=== PATIENT | female | born 1995 | race Caucasian/White ===

== ENCOUNTER 2017-02-14 19:40 | Emergency (ER) | payer OTHER ==
[~2017-02-14] VITALS: Ht 162.6 cm; Wt 102.0 kg
[~2017-02-14 19:40] MED LIST: AUGM875T PO
[2017-02-14 19:42] VITALS: BP 144/89; PULSE 90; RESP 15; TEMP 98.9; O2SAT 97
--- NOTE | 2017-02-14 21:27 | PD ---
HPI Chief Complaint: Flank/Kidney Pain Time Seen by Provider: 21:18 Travel History International Travel<30 days: No Contact w/Intl Traveler<30days: No Traveled to known affect area: No History of Present Illness HPI 21-year-old white female presents to emergency Department with complaints of left upper abdominal and left lateral abdominal wall pain. She states that this is been present now for the past month. She actually saw her doctor approximately 2 weeks ago. At that time she also is complaining of sore throat was given amoxicillin. She was told to take Tylenol for her pain. She states the pain has been intermittent. Worse when she stands at work or rotates. She has had no associated fever chills. No nausea vomiting. It is unaffected by her appetite. She's been eating and drinking normally. She is been urinating and stooling normally. She denies any vaginal complaints. Patient reports the pain is [id number] in intensity. Cramping in quality. PFSH Past Medical History Narrative Medical Gallstones Diminished Hearing: No Gastrointestinal Disorders: Yes (gallstones) Immunizations Current: Yes Tetanus Vaccination: < 5 Years ?: Not LMP: CURRENT Tubal Ligation: Yes Past Surgical History Narrative Surgical Cholecystectomy Abdominal Surgery: Yes (gall bladder) Section: Yes (x2) Cholecystectomy: Yes Other Surgery: Yes (cyst removed from neck) Social History Alcohol Use: Yes (occ) Tobacco Use: Yes (1/2 ppd) Substance Use: No Allergies-Medications (Allergen,Severity, Reaction): Coded Allergies: No Known Allergies (Unverified , 02/14/17) Reported Meds & Prescriptions Reported Meds & Active Scripts Active Diclofenac Sodium DR (Diclofenac Sodium) 75 Mg Tabdr 75 Mg PO BID Review of Systems Except as stated in HPI: all other systems reviewed are Neg Physical Exam Narrative GENERAL: Well-developed, well-nourished in no acute distress. Nontoxic appearing. HEAD: Normocephalic, atraumatic. EYES: Pupils equal round and reactive. Extraocular motions intact. No scleral icterus. No injection or drainage. ENT: TMs clear without erythema. The external auditory canals clear. Nose: clear . Posterior pharynx is pink and moist. No tonsillar edema or exudate. Uvula midline. Airway patent. NECK: Trachea midline.Supple, nontender, moves head freely. No central bony tenderness or spasm. CARDIOVASCULAR: Regular rate and rhythm without murmurs, gallops, or rubs. RESPIRATORY: Clear to auscultation. Breath sounds equal bilaterally. No wheezes , rales, or rhonchi. GASTROINTESTINAL: Abdomen soft, patient has mild tenderness on the left costal margin. There is no deep abdominal tenderness., nondistended. No hepato- splenomegaly, or palpable masses. No guarding. EXTREMITIES: No clubbing, cyanosis, or edema. No joint tenderness, effusion, or edema noted. BACK: Nontender without deformity or crepitance. No flank tenderness. Data Data Last Documented VS Vital Signs Date Time Temp Pulse Resp B/P (MAP) Pulse Ox O2 Delivery O2 Flow Rate FiO2 02/14/17 19:42 98.9 90 15 144/89 (107) 97 Room Air Orders Orders Complete Blood Count With Diff (02/14/17 21:23) Comprehensive Metabolic Panel (02/14/17 21:23) Urinalysis - C+S If Indicated (02/14/17 21:23) Naproxen (Naprosyn) (02/14/17 22:30) Labs Laboratory Tests Test 02/14/17 21:26 White Blood Count 11.9 TH/MM3 Red Blood Count 5.26 MIL/MM3 Hemoglobin 12.0 GM/DL Hematocrit 38.0 % Mean Corpuscular Volume 72.3 FL Mean Corpuscular Hemoglobin 22.9 PG Mean Corpuscular Hemoglobin Concent 31.6 % Red Cell Distribution Width 16.4 % Platelet Count 272 TH/MM3 Mean Platelet Volume 8.6 FL Neutrophils (%) (Auto) 57.1 % Lymphocytes (%) (Auto) 33.3 % Monocytes (%) (Auto) 5.0 % Eosinophils (%) (Auto) 4.3 % Basophils (%) (Auto) 0.3 % Neutrophils # (Auto) 6.8 TH/MM3 Lymphocytes # (Auto) 4.0 TH/MM3 Monocytes # (Auto) 0.6 TH/MM3 Eosinophils # (Auto) 0.5 TH/MM3 Basophils # (Auto) 0.0 TH/MM3 CBC Comment DIFF FINAL Differential Comment Urine Color YELLOW Urine Turbidity HAZY Urine pH 6.5 Urine Specific [place] 1.022 Urine Protein TRACE mg/dL Urine Glucose (UA) NEG mg/dL Urine Ketones NEG mg/dL Urine Occult Blood MOD Urine Nitrite NEG Urine Bilirubin NEG Urine Urobilinogen LESS THAN 2.0 MG/DL Urine Leukocyte Esterase NEG Urine RBC 2 /hpf Urine WBC 4 /hpf Urine Squamous Epithelial Cells 2 /hpf Urine Amorphous Sediment RARE Urine Mucus FEW /lpf Microscopic Urinalysis Comment CULT NOT INDICATED Blood Urea Nitrogen 16 MG/DL Creatinine 0.92 MG/DL Random Glucose 91 MG/DL Total Protein 7.4 GM/DL Albumin 4.0 GM/DL Calcium Level 8.8 MG/DL Alkaline Phosphatase 79 U/L Aspartate Amino Transf (AST/SGOT) 11 U/L Alanine Aminotransferase (ALT/SGPT) 21 U/L Total Bilirubin 0.2 MG/DL Sodium Level 140 MEQ/L Potassium Level 3.9 MEQ/L Chloride Level 108 MEQ/L Carbon Dioxide Level 27.1 MEQ/L Anion Gap 5 MEQ/L Estimat Glomerular Filtration Rate 76 ML/MIN MDM Medical Decision Making Medical Screen Exam Complete: Yes Emergency Medical Condition: Yes Medical Record Reviewed: Yes Interpretation(s) CBC & BMP Diagram 02/14/17 21:26 Total Protein 7.4, Albumin 4.0, Calcium Level 8.8, Alkaline Phosphatase 79, Aspartate Amino Transf (AST/SGOT) 11 L, Alanine Aminotransferase (ALT/SGPT) 21, Total Bilirubin 0.2 Differential Diagnosis MDM: Moderate Differential diagnoses: Gastritis, reflux, abdominal wall strain, intra- abdominal process, UTI, pyelonephritis Narrative Course Urine is negative. Patient's CBC has a mildly elevated white count 11,000 but no shift. Lites lites are normal. Patient's exam is consistent with myofascial tenderness to the left costal margin. Her abdomen is soft and nontender. She's been eating and drinking normally. She stooling and urinating normally. I see no emergent process. Patient was given Naprosyn 500 mg EOMI advised to follow-up with her doctor the next 1-2 days for recheck. This is left upper abdominal wall pain Diagnosis Primary Impression: Abdominal wall pain in left upper quadrant Patient Instructions: General Instructions Additional Instructions: Rest. Increase fluids. Diclofenac for pain. Follow-up with your doctor in the next 1-2 days. Return to the ER for any emergencies. Med/Other Pt SpecificInfo: Prescription(s) given Scripts Diclofenac Sodium DR (Diclofenac Sodium DR) 75 Mg Tabdr 75 MG PO BID, #20 TAB 0 Refills Prov: Lightburn,David Venancio MD 02/14/17 Disposition: 01 DISCHARGE HOME Condition: Stable Sanchez Pitts Feb 14, 2017 21:27
[2017-02-14 21:54] LABS: BLOOD, URINE MOD (NEG); COMMENT (UR) CULT NOT INDICATED; CULTURE IF INDICATED CULT NOT INDICATED; GLUCOSE,URINE NEG (NEG); KETONE, URINE NEG (NEG); MUCUS URINE FEW /lpf (OCC); NITRITE,URINE NEG (NEG); PH, URINE 6.5 (5.0-8.5); SQUAMOUS EPITHELIAL CELL URINE 2 /hpf (0-5); URINE COLOR YELLOW (YELLW/STRAW)
[2017-02-14 21:56] LABS: AUTOMATED NEUTROPHIL # 6.8 TH/MM3 (1.8-7.7); BASOPHIL % 0.3 % (0.0-2.0); EOSINOPHIL # 0.5 TH/MM3 (0-0.4); EOSINOPHIL % 4.3 % (0.0-4.0); HEMO FLAGS DIFF FINAL; LYMPH % 33.3 % (9.0-44.0); MEAN CELL VOLUME 72.3 FL (80.0-100.0); MEAN CORPUSCULAR HEMOGLOBIN 22.9 PG (27.0-34.0); MEAN CORPUSCULAR HGB CONC 31.6 % (32.0-36.0); NEUT % 57.1 % (16.0-70.0); PLATELET COUNT 272 TH/MM3 (150-450); RED BLOOD COUNT 5.26 MIL/MM3 (4.00-5.30); RED CELL DISTRIBUTION WIDTH 16.4 % (11.6-17.2); WHITE BLOOD COUNT 11.9 TH/MM3 (4.0-11.0)
[2017-02-14 22:11] LABS: ALT (GPT) 21 U/L (10-53); ANION GAP 5 MEQ/L (5-15); AST (GOT) 11 U/L (15-37); BICARBONATE 27.1 MEQ/L (21.0-32.0); BLOOD UREA NITROGEN 16 MG/DL (7-18); CHLORIDE 108 MEQ/L (98-107); GLOMERULAR FILTRATION RATE 76 ML/MIN (>89); POTASSIUM 3.9 MEQ/L (3.5-5.1); SODIUM (NA) 140 MEQ/L (136-145)
[2017-02-14 22:14] LABS: ALKALINE PHOSPHATASE 79 U/L (45-117); TOTAL BILIRUBIN ADULT 0.2 MG/DL (0.2-1.0)
[2017-02-14] MEDS ORDERED: NAPROXEN 500 MG TAB PO ONE (22:30)
[2017-02-14] MEDS ORDERED: DICL75TA PO (22:31)
== END 2017-02-14 23:04 | disposition home or self-care (01) ==
LOC: NEPD 19:40
DX: R10.12 Left upper quadrant pain (principal); F17.200 Nicotine dependence, unspecified, uncomplicated
CPT/HCPCS: 80053; 81001; 85025; 99283

== ENCOUNTER 2017-04-20 19:00 | Emergency (ER) | payer OTHER ==
[~2017-04-20] VITALS: Ht 162.6 cm; Wt 104.5 kg
[~2017-04-20 19:00] MED LIST changes: -AUGM875T PO; +DICL75TA PO
[2017-04-20 19:01] VITALS: BP 181/84; PULSE 80; RESP 16; TEMP 98.7; O2SAT 98
--- NOTE | 2017-04-20 19:55 | PD ---
HPI Chief Complaint: Skin Problem Time Seen by Provider: 19:55 Travel History International Travel<30 days: No Contact w/Intl Traveler<30days: No Traveled to known affect area: No History of Present Illness HPI Examined in the presence of a female nurse. 21-year-old female presents for evaluation of rash. She reports that initially she developed a rash on her arms and legs in January after she went very picking. She thought that it may have been chiggers and so she put nail syriac on the skin lesions and it resolved. She began developing similar rash in late March and this is what prompted evaluation. She reports that the rash is very pruritic. She denies any new medications, creams, lotions, detergents, recent travel, fevers or chills, sore throat, abdominal pain. No sick contacts. She does note that she moved into a new apartment in January and her symptoms seem to started shortly after that. She has no other complaints at this time. [facility] Past Medical History Medical History: Denies Significant Hx Diminished Hearing: No Gastrointestinal Disorders: Yes (gallstones) Immunizations Current: Yes Tetanus Vaccination: Unknown Influenza Vaccination: No ?: Not LMP: 04/05/2017 : 3 Para: 3 Tubal Ligation: Yes Past Surgical History Abdominal Surgery: Yes (gall bladder) Section: Yes (x2) Cholecystectomy: Yes Other Surgery: Yes (cyst removed from neck) Social History Alcohol Use: Yes (occ) Tobacco Use: Yes (1/2 ppd) Substance Use: No Allergies-Medications (Allergen,Severity, Reaction): Coded Allergies: latex (Verified Allergy, Severe, 04/20/17) RASH No Known Allergies (Unverified Allergy, Unknown, 04/20/17) Reported Meds & Prescriptions Reported Meds & Active Scripts Active Elimite Topical (Permethrin) 5% Cream 1 Applic TOPICAL ONCE Review of Systems Except as stated in HPI: all other systems reviewed are Neg Physical Exam Narrative GENERAL: Well-developed well-nourished female in no acute distress SKIN: Warm and dry. Nonspecific excoriated papular lesions primarily in the arms and legs. Seems to spare the torso. No vesicles, no pustules, no petechiae, no purpura, no annular lesions, no erythema. HEAD: Atraumatic. Normocephalic. EYES: Pupils equal and round. No scleral icterus. No injection or drainage. ENT: No nasal bleeding or discharge. Mucous membranes pink and moist. NECK: Trachea midline. No JVD. CARDIOVASCULAR: Regular rate and rhythm. No murmur appreciated. RESPIRATORY: No accessory muscle use. Clear to auscultation. Breath sounds equal bilaterally. GASTROINTESTINAL: Abdomen soft, non-tender, nondistended. Hepatic and splenic margins not palpable. MUSCULOSKELETAL: No obvious deformities. No clubbing. No cyanosis. No edema. NEUROLOGICAL: Awake and alert. No obvious cranial nerve deficits. Motor grossly within normal limits. Normal speech. Data Data Last Documented VS Vital Signs Date Time Temp Pulse Resp B/P (MAP) Pulse Ox O2 Delivery O2 Flow Rate FiO2 04/20/17 19:01 98.7 80 16 181/84 (116) 98 Room Air Orders Orders Ed Discharge Order (04/20/17 20:09) [facility] Medical Decision Making Medical Screen Exam Complete: Yes Emergency Medical Condition: Yes Medical Record Reviewed: Yes Differential Diagnosis scabies, bedbugs, scabies, contact dermatitis, atopic dermatitis, impetigo Narrative Course 21-year-old female with nonspecific pruritic rash on the arms and legs for the past several weeks. On examination she has nonspecific scattered excoriated papular lesions on the extremities. Unclear etiology. She does note that symptoms started shortly after moving to a new apartment. With this information in mind, the plan would be to treat the patient with oral antihistamines as well as topical permethrin. Advised follow-up with primary care physician, possibly dermatology referral if symptoms continue to persist. She is agreeable with this plan. Diagnosis Primary Impression: Excoriated rash Additional Instructions: Medication as prescribed. [id number] Benadryl every 6 hours as needed for itching. Do not drive or drink alcohol when taking Benadryl. Follow-up with primary care physician if rash persists. Return for any emergent medical conditions. Med/Other Pt SpecificInfo: Prescription(s) given Scripts Permethrin Topical (Elimite Topical) 5% Cream 1 APPLIC TOPICAL ONCE for Scabies, #1 TUBE 1 Refill Prov: Audi Guerrero MD 04/20/17 Disposition: 01 DISCHARGE HOME Condition: Stable Jose Arciniega Apr 20, 2017 19:55
[2017-04-20] MEDS ORDERED: PERM5CRE11 TOPICAL (20:08)
== END 2017-04-20 20:52 | disposition home or self-care (01) ==
LOC: NEPD 19:00
DX: R21 Rash and other nonspecific skin eruption (principal); F17.200 Nicotine dependence, unspecified, uncomplicated
CPT/HCPCS: 99283